=== PATIENT | female | born 1965 | race Caucasian/White ===

== ENCOUNTER → 2019-06-16 | Outpatient (CLI) | payer BC ==
--- NOTE | 2019-06-17 10:23 | RADIOLOGY REPORT (SQ) ---
EXAM DESCRIPTION: PET CT WHOLE BODY COMPLETED DATE/TIME: 06/16/2019 1:14 pm REASON FOR STUDY: T CELL LYMPHOMA C84.A0 CUTANEOUS T-CELL LYMPHOMA, UNSPECIFIED, UNSPECIFIED S COMPARISON: None. RADIONUCLIDE AND DOSE: 9.73 mCi F18 FDG The route of agent administration: Intravenous FASTING BLOOD SUGAR: 92 mg/dl CONTRAST TYPE AND DOSE: No CT contrast given. TECHNIQUE: Blood glucose level was verified. Above dose of FDG was injected intravenously. 2-D seg mented attenuation correction images were obtained through the entire body. Noncontrast CT images we re obtained for attenuation correction and fusion with emission images. CT images were performed wit hout oral or intravenous contrast and are not sensitive for parenchymal lesions. A series of overlap ping emission PET images were obtained. Images reviewed and manipulated at independent work station by the radiologist. Images stored on PACS. LIMITATIONS: None. FINDINGS: HEAD AND NECK: No areas of abnormal metabolic activity in the soft tissues of the head and neck. CHEST: No areas of abnormal metabolic activity in the chest. ABDOMEN AND PELVIS: The liver demonstrates heterogeneous non focal FDG uptake with an average SUV of 2.5. There is expected physiologic activity throughout the gastrointestinal and genitourinary tracts . No areas of abnormal metabolic activity are identified in the abdomen and pelvis. LOWER EXTREMITIES: No areas of abnormal metabolic activity in the soft tissues of the lower extremiti es. BONES: No areas of abnormal metabolic activity in the imaged axial and appendicular skeleton. ADDITIONAL CT FINDINGS: Colonic diverticulosis. OTHER: No other findings. IMPRESSION: No metabolic evidence of metastatic disease. TECHNICAL DOCUMENTATION: JOB ID: [id number] 2010 [employer]- All Rights Reserved Reading location - IP/workstation name: [email or web address]
== END ==
LOC: RAD 10:23
PROVIDERS: ATTEND Internal Medicine Hematology & Oncology
DX: C84.A0 Cutaneous T-cell lymphoma, unspecified, unspecified site (principal)
CPT/HCPCS: 78816; A9552